=== PATIENT | female | born 1980 | race Caucasian/White ===

== ENCOUNTER 2017-07-25 11:11 | Emergency (ER) | payer BC ==
[~2017-07-25] VITALS: Ht 167.6 cm; Wt 70.0 kg
[2017-07-25 11:14] VITALS: BP 126/79; PULSE 80; RESP 15; TEMP 98.4; O2SAT 98
--- NOTE | 2017-07-25 11:29 | PD ---
HPI Chief Complaint: Skin Problem Time Seen by Provider: 11:27 Travel History International Travel<30 days: No Contact w/Intl Traveler<30days: No Traveled to known affect area: No History of Present Illness HPI 37-year-old female presents emergency department for evaluation of a cyst to the lower back for approximately 1 week. Patient states that the area has become more enlarged and more painful and so she decided to come to emergency department today for evaluation. Says the site is mild to moderately painful. Says pressure increases the pain. Nothing seems to relieve her pain. States the site is painful and has trouble sitting because of the pain. Says about a month ago she had bedbug suspects this is the result of those bedbugs. Patient does not currently believe she has bedbugs. She denies chronic medical issues medication use. She denies fever or chills. Says that she thinks she may have had an abscess previously but has not been present in some time. She does not have a primary care physician as she is new to the area. PFSH Past Medical History Medical History: Denies Significant Hx Influenza Vaccination: No ?: Not LMP: 06/19/17 Tubal Ligation: Yes Social History Alcohol Use: No Tobacco Use: No Substance Use: No Allergies-Medications (Allergen,Severity, Reaction): Coded Allergies: No Known Allergies (Unverified , 07/25/17) Reported Meds & Prescriptions Reported Meds & Active Scripts Active Keflex (Cephalexin) 500 Mg Cap 500 Mg PO Q8H 7 Days Bactrim DS (Sulfamethoxazole-Trimethoprim) 800-160 Mg Tab 1 Tab PO BID Review of Systems Except as stated in HPI: all other systems reviewed are Neg Physical Exam Narrative GENERAL: Well-nourished, well-developed patient. SKIN: Focused skin assessment warm/dry. Lower lumbar region HEAD: Normocephalic. EYES: No scleral icterus. No injection or drainage. NECK: Supple, trachea midline. No JVD or lymphadenopathy. CARDIOVASCULAR: Regular rate and rhythm without murmurs, gallops, or rubs. RESPIRATORY: Breath sounds equal bilaterally. No accessory muscle use. GASTROINTESTINAL: Abdomen soft, non-tender, nondistended. MUSCULOSKELETAL: No cyanosis, or edema. BACK: Nontender without obvious deformity. No CVA tenderness. Data Data Last Documented VS Vital Signs Date Time Temp Pulse Resp B/P (MAP) Pulse Ox O2 Delivery O2 Flow Rate FiO2 07/25/17 12:14 18 100 07/25/17 11:14 98.4 80 126/79 (95) Orders Orders Wound Culture And Gram Stain (07/25/17 11:52) Ed Discharge Order (07/25/17 11:57) MDM Medical Decision Making Medical Screen Exam Complete: Yes Emergency Medical Condition: Yes Differential Diagnosis EIC, abscess, cellulitis Narrative Course 37-year-old female presents emergency department for evaluation of a cyst to the lower back for approximately 1 week. Patient states that the area has become more enlarged and more painful and so she decided to come to emergency department today. Says about a month ago she has bedbug suspects this is the result of those bedbugs. Patient does not currently believe she has bedbugs. States the site is painful and has trouble sitting because of the pain. She denies chronic medical issues medication use. She denies fever chills. It appears that this may have been an epidermal inclusion cyst that has become infected secondary to movement and potentially irritation. There is an area of fluctuance over the central aspect of the mostly indurated. I&D performed. Patient advised to return to the emergency department for wound check of this cyst. Patient will be discharged with antibiotics. Advised to return to the emergency department worsening or persistent symptoms. Procedures Procedure Narrative INCISION AND DRAINAGE OF ABSCESS: The area was prepped and was sterilely draped. A subcutaneous wheal of 2 % Xylocaine without epinephrine with a total number 3 mL was used to anesthetize the area properly. A number 11 scalpel was used to make a 1-cm incision across the area of the abscess. The abscess was drained, complex loculations were broken down, and irrigated with normal saline. Cultures were obtained. Quarter inch iodoform packing was placed in the wound. Sterile dressing applied. Patient advised to have packing removed in two days. Diagnosis Primary Impression: Abscess Referrals: [facility] Additional Instructions: Return to the emergency department in approximately 1-2 days for wound check. Keep area clean and dry. You may change your outer dressings daily but keep the gauze inside the wound. If bleeding starts, applied pressure. If he developed increased redness, swelling, or pain return to the emergency department. Take medication as prescribed Scripts Cephalexin (Keflex) 500 Mg Cap 500 MG PO Q8H for Infection for 7 Days, #21 CAP 0 Refills Prov: Roman Lr MD 07/25/17 Sulfamethoxazole-Trimethoprim (Bactrim DS) 800-160 Mg Tab 1 TAB PO BID for Infection, #14 TAB 0 Refills Prov: Roman Lr MD 07/25/17 Disposition: 01 DISCHARGE HOME Condition: Stable Lidia Merritt Jul 25, 2017 11:29
[2017-07-25] MEDS ORDERED: BACT800T5 PO (11:56)
[2017-07-25] MEDS ORDERED: CEPH-460 PO (11:56)
== END 2017-07-25 12:26 | disposition home or self-care (01) ==
LOC: PHEFT 11:11
DX: L02.212 Cutaneous abscess of back [any part, except buttock and flank] (principal); B95.4 Other streptococcus as the cause of diseases classified elsewhere
CPT/HCPCS: 10061; 87070

== ENCOUNTER 2017-07-27 13:10 | Emergency (ER) | payer BC ==
[~2017-07-27] VITALS: Ht 167.6 cm; Wt 70.0 kg
[~2017-07-27 13:10] MED LIST: BACT800T5 PO; CEPH-460 PO
[2017-07-27 13:14] VITALS: BP 158/78; PULSE 105; RESP 18; TEMP 98.3; O2SAT 100
--- NOTE | 2017-07-27 13:27 | PD ---
HPI Chief Complaint: Wound/Suture/Staple Re-Check Time Seen by Provider: 13:16 Travel History International Travel<30 days: No Contact w/Intl Traveler<30days: No Traveled to known affect area: No History of Present Illness HPI 37-year-old female presents to the emergency department for reevaluation of an abscess to her lower back. Patient was seen 2 days ago in the emergency department incision and drainage was completed. Packing was placed. She is back today for packing removal and reevaluation. Patient states her symptoms are improving. No fevers or chills. She has taken her antibiotics as directed. Current pain is 4/10 without radiation. Mild severity. PFSH Past Medical History ?: Not Tubal Ligation: Yes Social History Alcohol Use: No Tobacco Use: No Substance Use: No Allergies-Medications (Allergen,Severity, Reaction): Coded Allergies: No Known Allergies (Unverified , 07/27/17) Reported Meds & Prescriptions Reported Meds & Active Scripts Active Keflex (Cephalexin) 500 Mg Cap 500 Mg PO Q8H 7 Days Bactrim DS (Sulfamethoxazole-Trimethoprim) 800-160 Mg Tab 1 Tab PO BID Review of Systems Except as stated in HPI: all other systems reviewed are Neg Physical Exam Narrative GENERAL: Well-nourished, well-developed female patient, ambulatory. Afebrile SKIN: Focused skin assessment warm/dry. Patient has abscess, status post incision and drainage to the lower back with packing in place. No surrounding erythema. Packing is removed without difficulty. HEAD: Normocephalic. Atraumatic. EYES: No scleral icterus. No injection or drainage. NECK: Supple, trachea midline. RESPIRATORY: No accessory muscle use. GASTROINTESTINAL: Abdomen soft, non-tender, nondistended. BACK: Nontender without obvious deformity. No CVA tenderness. Data Data Last Documented VS Vital Signs Date Time Temp Pulse Resp B/P (MAP) Pulse Ox O2 Delivery O2 Flow Rate FiO2 07/27/17 13:14 98.3 105 18 158/78 (104) 100 MDM Medical Decision Making Medical Screen Exam Complete: Yes Emergency Medical Condition: Yes Medical Record Reviewed: Yes Differential Diagnosis Abscess recheck versus packing removal versus failed outpatient treatment Narrative Course 37-year-old female presents to the emergency department for evaluation of an abscess to her lower back that was incised and drained 2 days ago in the emergency department. Symptoms are improving and patient appears well. Packing is removed without difficulty. Patient is instructed to continue wound care and antibiotics. She is follow up with her primary care physician as needed or return here for any acute worsening of symptoms. The patient was discharged in stable condition with instructions, including return instructions and follow up instructions. Diagnosis Primary Impression: Abscess re-check Referrals: Primary Care Physician as needed Patient Instructions: Abscess Follow-up (ED), General Instructions Additional Instructions: Continue antibiotics as directed until gone Clean twice daily with soap and water and apply [id number] antibiotic ointment. Follow up with your primary care physician as needed. Return to the emergency department for any acute worsening of symptoms. Med/Other Pt SpecificInfo: No Change to Meds Disposition: 01 DISCHARGE HOME Condition: Stable Kareen Aguero Jul 27, 2017 13:27
== END 2017-07-27 13:37 | disposition home or self-care (01) ==
LOC: PHEFT 13:10
DX: Z48.817 Encounter for surgical aftercare following surgery on the skin and subcutaneous tissue (principal)
CPT/HCPCS: 99281